=== PATIENT | male | born 1960 | race Caucasian/White ===

== ENCOUNTER 2016-08-23 07:13 | Day surgery (SDC) | payer OTHER ==
[2016-08-23] VITALS (20 sets, daily range): BP systolic 113–164; BP diastolic 54–95; PULSE 72–95; RESP 13–20; TEMP 97.3–97.6; O2SAT 88–98; Ht 167.6 cm; Wt 112.5 kg
[~2016-08-23] VITALS: Ht 167.6 cm; Wt 112.5 kg
[~2016-08-23 07:13] MED LIST: ASPI81TA2 PO; CEFAZOLIN 1 GRAM INJECTION IV ONE; CELE-85 PO; INSU300I; LIDOCAINE 1% (10mg/ml) 2ml SDV INJ ONE; LISI-1 PO; LR 1,000 ML IV SCH; MELO-31 PO; METF-206 PO; PIOG45TA5 PO; PRAV20TA4 PO; VENL-67 PO
[2016-08-23 08:00] LABS: POTASSIUM 4.3 MEQ/L (3.6-5)
[2016-08-23] MEDS ORDERED: FENTANYL 100mcg/2ml INJECTION IV PRN (08:00)
[2016-08-23] MEDS ORDERED: MIDAZOLAM 5mg/5ml INJECTION IV PRN (08:00)
[2016-08-23 08:01] LABS: ANION GAP 11 MEQ/L (5-15); BUN/CREATININE RATIO 34 RATIO (6-26); CALCIUM 9.4 MG/DL (8.4-10.2); CHLORIDE 106 MEQ/L (98-107); CO2 - CARBON DIOXIDE 28 MEQ/L (22-30); CREATININE 0.7 MG/DL (0.8-1.5); GLOMERULAR FILTRATION RATE 117; GLUCOSE 170 MG/DL (75-110); SODIUM 145 MEQ/L (134-144)
[2016-08-23] MEDS ORDERED: LIDOCAINE 1%/EPI 1:100,000 20ml MDV ONE (08:28)
--- NOTE | 2016-08-23 08:37 | ANESPREOP ---
Anesthesia Record Date and Time DATE: 08/23/16 TIME: 08:35 Pre-Op Diagnosis hypertrophic AC left posterior neck Proposed Surgical Procedure EXCISION OF LESION NPO since: 0500 Allergies: Coded Allergies: No Known Drug Allergies (Verified Allergy, Unknown, 08/23/16) Ht/Wt/BMI Height: 5 ' 6.00 " Weight: 112.500 kg BMI: 40.0 kg/m2 Vital Signs Date Time Temp Pulse Resp B/P Pulse Ox O2 Delivery O2 Flow Rate FiO2 08/23/16 07:31 97.5 80 14 164/84 93 Room Air Medications Inpatient Medications Current Medications Medications (Trade) Dose Ordered Sig/Yari Start Time Stop Time Status Last Admin Dose Admin Lactated Ringer's (Lactated Ringers) 1,000 ml @ 50 mls/hr Q20H 08/23/16 07:00 08/23/16 07:56 50 MLS/HR Fentanyl (Fentanyl) 25-50MCG IV PUSH PRN NOT... PRN PRN 08/23/16 08:00 Midazolam HCl (Versed) 05.-3 MG IV PUSH EVERY... PRN PRN 08/23/16 08:00 Aspirin (Aspirin) 81 Mg Tab.chew, 1 TAB PO DAILY, (Reported) Last Taken: on 08/16/16 0800 Celecoxib (Celecoxib) 200 Mg Capsule, 1 CAP PO BID, (Reported) Last Taken: on Unknown Date & Time Insulin Glargine,Hum.rec.anlog (Toelena Solostar) 300 Unit/1 Ml Insuln.pen, (Reported) Last Taken: on 08/21/16 220 Lisinopril/Hydrochlorothiazide (Lisinopril- Hctz 20-12.5 Tablet) 1 Tab Tablet, 1 TAB PO DAILY, (Reported) Last Taken: on 08/20/16 0800 Meloxicam (Mobic) 7.5 Mg Tablet, 7.5 MG PO DAILY , (Reported) Last Taken: on 08/20/162199 Metformin Hcl (Metformin Hcl) 1,000 Mg Tablet, 1 ,000 MG PO BID, (Reported) Last Taken: on 08/20/162199 Pioglitazone Hcl (Actos) 45 Mg Tablet, 1 TAB PO DAILY, (Reported) Last Taken: on 08/20/162199 Pravastatin Sodium (Pravastatin Sodium) 20 Mg Tablet, 1 TAB PO DAILY, (Reported) Last Taken: on 08/20/162199 Venlafaxine HCl (Venlafaxine HCl ER) 37.5 Mg Cap.er.24h, 1 CAP PO DAILY, (Reported) Last Taken: on 08/20/162199 Discontinued Medications Aspirin (Aspirin) 325 Mg Tablet, 325 MG PO DAILY, (Reported) Currently on Beta Mary Beth: No Medical/Surgical History Anesthesia PMH: Reports: *Diabetes, *Dyspnea, *Hypertension, Arthritis, Cancer (SKIN POSSIBLE), Obesity, Sleep Apnea, Denies: *Angina, *NH, Anesthesia Reactions (NO AIRWAY ISSUES), Asthma, Blood Transfusion Reac, CHF, COPD, CVA/ Stroke/TIA, Clotting Problems, Deep Vein Thrombosis, Glaucoma, Hepatitis, Hiatal Hernia, Malignant Hyperthermia, Pneumonia (HX OF 1997), Reflux, Renal Disease, Seizures, Thyroid Disease, Tuberculosis Smoking Status: Never smoker Has pt. smoked today?: No Use Chewing Tobacco?: No Second Hand Exposure: No Substance Use Type: does not use Alcohol Intake: none Past Surgical History Orthopedic Surgeries: No Abdominal Surgeries: No Genitourinary Surgeries: No Cardiac Surgeries: No Endocrine Surgeries: No Reproductive Surgeries: No Neurological Surgeries: No Ear Surgeries: No Nose Surgeries: No Throat Surgeries: No Other Surgeries: Yes - colonoscopy,HEMORRHOIDECTOMY Anesthesia Adverse Reactions: FOUND none Family Hx of Anesthesia Advers: none Hx of Motion Sickness: No Pertinent Findings Laboratory Tests 08/23/16 07:44 EKG Rhythm: Sinus Rhythm Physical Exam Respiratory: Lungs clear Cardiovascular: FOUND Regular rate, rhythm, FOUND No murmur Airway Assessment Mallampati Score: II TMD: 3 Fingerbreadths Neck Extension: Good Teeth: Chipped Teeth/Crowns Overall Assessment: May Be Diff Mask Vent. ASA: 3 Plan Anesthesia Plan: MAC Discussion Discussed risks/options/alternatives of anesthesia and questions answered. Patient consents. Nursing pain assessment noted. Present: Spouse Attestation Statement Prior to the delivery of any anesthetic medication, I examined the patient, developed the plan, obtained the patient's consent and discussed the risk and benefits of the procedure with the patient/guardian. MARILUZ JOHNSON CRNA Aug 23, 2016 08:37
--- NOTE | 2016-08-23 09:00 | NUR ---
MOHS PROCEDURE DR. MOLINA MARKED AND INTERVIEWED PT. ANESTHESIA INTERVIEWD PT. BOARD SAW RUNNER INTERVIEWED PT. 2MG OF VERSED AND 50MCG OF FENTANYL GIVEN SLOW IV PUSH BY PREOP RN PER DR MOLINA VERBAL ORDER. DR. MOLINA INTO PT ROOM AT 0838. PT PREPPED BY DR. MOLINA WITH 3% CHLOROXYLENOL. TIMEOUT COMPLETED AT [address] MOLINA. 1% LIDOCAINE WITH EPI 1:100,000 WAS INJECTED AT 0845. AMOUNT USED 8CC. BOVIE IN ROOM AND PLUGGED IN AND HIGHEST POWER OUTPUT USED WAS 20. SPECIMEN SENT FOR [facility] PATHOLOG[facility] AT 0850: 1. HYPERTROPHICACTINIC KERATOSIS LEFT POSTERIOR NEC LESION-NEEDLE AT 12 O'CLOCK.
[2016-08-23] MEDS ORDERED: MIDAZOLAM 2mg/2ml INJECTION ONE (10:09)
--- NOTE | 2016-08-23 10:35 | PDPROCED ---
Procedure Note Date 08/23/16 Procedure Name Excision of BCC left posterior neck at the mastoid: Lesion size 1.8 cm, excision 2.9 cm, final defect 3.7 cm Procedure Detail Preop dx: Hypertrophic Actinic keratosis left posterior neck at the mastoid Postop dx: BCC left posterior neck at the mastoid Anesthesia: MAC EBL: Less than 15 ml Case: Clean Complications: None ELIER MOLINA MD Aug 23, 2016 10:35
--- NOTE | 2016-08-23 10:48 | ANESPO ---
Post-Op Note Date 08/23/16 Time: 10:47 Status Pt Participated in Evaluation: Pt participated in person Vital Signs Date Time Temp Pulse Resp B/P Pulse Ox O2 Delivery O2 Flow Rate FiO2 08/23/16 09:45 72 15 133/65 97 Nasal Cannula 2.00 08/23/16 07:31 97.5 Cardiovascular Function: Regular pulse Mental Status: Alert/oriented Pain Level Intensity: 0 Hydration: Taking po fluids Complications during Recovery None apparent Follow-Up Instructions Instructions Per Surgeon MARILUZ JOHNSON CRNA Aug 23, 2016 10:48
[2016-08-23] MEDS ORDERED: ACET1TAB12 PO (11:06)
[2016-08-23] MEDS ORDERED: CEPH-583 PO (11:06)
[2016-08-23] MEDS ORDERED: ONDANSETRON 4mg/2ml INJECTION IV PRN (11:15)
[2016-08-23] MEDS ORDERED: HYDROCODONE/APAP 5 mg/325 mg TABLET PO PRN (11:15)
[2016-08-23] MEDS ORDERED: ATROPINE 1mg/10ml Syringe IV PRN (11:15)
--- NOTE | 2016-08-23 16:35 | OPNOTEF ---
DATE OF OPERATION 08/23/2016 PREOPERATIVE DIAGNOSIS Hypertrophic actinic keratosis left posterior neck at the mastoid. POSTOPERATIVE DIAGNOSIS Basal cell carcinoma left posterior neck at the mastoid. OPERATION Excision of basal cell carcinoma left posterior neck at the mastoid with frozen section guidance of margins and complex closure. Lesion size was 1.8 cm. Excision was 2.9 cm. Final defect was 3.7 cm. SURGEON Jaelyn Saab M.D. ANESTHESIA MAC INDICATIONS The patient is a 55-year-old man who presented for a lesion of his left posterior neck, having been referred by Griffin Staley PA-C. The lesion had been present for over a year; it was tender to touch and bled easily. Patient had been treated with cryotherapy more than once with recurrent growth. Biopsy was performed in September of 2015 revealing an ulcerated actinic keratosis. The patient has a history of multiple actinic keratoses treated with cryotherapy. He has had frequent sun exposure without protection and denies any personal or family history of skin cancer. On exam, he had a 1.8 cm ulcerated and erythematous lesion with raised borders of the left posterior neck at the mastoid. In detailed discussion with the patient preoperatively, the risks, benefits and alternatives of excision of the lesion with frozen section guidance of margins were reviewed including, but not limited to, bleeding, infection, poor or keloid scarring, residual and/or recurrent disease, possible partial or complete loss of the flap or graft. The patient understood and wished to proceed. Medical clearance was obtained from Griffin Staley PA-C. DESCRIPTION OF PROCEDURE The patient was marked preoperatively and then, after suitable IV sedation, the neck and face were prepped and draped in the usual sterile manner. The involved area was then infiltrated with 1% lidocaine with epinephrine. After a wait for hemostasis, the lesion was excised and handed off as a specimen with a tag at the 12 o'clock margin. Subsequent pathologic evaluation revealed basal cell carcinoma with clear margins. The patient was then brought to the operating room and again prepped and draped in the usual sterile manner. The area was infiltrated again with 1% lidocaine with epinephrine and then widely undermined. Dog ears were removed and meticulous hemostasis was obtained using the electrocautery. The wound was then closed in two layers using interrupted buried sutures of 5-0 Vicryl and then a running 5-0 nylon. Benzoin and Steri-Strips were applied, as well as a dry sterile dressing and Mefix tape. The patient was then brought to the recovery room in stable condition. Estimated blood loss was less than 10 mL. The case was clean. Specimens: Basal cell carcinoma of left posterior neck at the mastoid. MTDD
== END 2016-08-23 11:35 | disposition home or self-care (01) ==
LOC: SCU 07:13
PROVIDERS: ATTEND Surgery Plastic and Reconstructive Surgery
DX: C44.41 Basal cell carcinoma of skin of scalp and neck (principal)
CPT/HCPCS: 11623; 13132; 36415; 80048; J0690; J2250; J3010; J7120

== ENCOUNTER 2016-08-30 09:13 | Emergency (ER) | payer OTHER ==
[~2016-08-30] VITALS: Ht 167.6 cm; Wt 111.4 kg
[~2016-08-30 09:13] MED LIST changes: +ACET1TAB12 PO; -CEFAZOLIN 1 GRAM INJECTION IV ONE; +CEPH-583 PO; -INSU300I; +INSU300I SQ; -LIDOCAINE 1% (10mg/ml) 2ml SDV INJ ONE; -LR 1,000 ML IV SCH
--- OUTSIDE RECORDS SUMMARY | 2016-08-30 09:17 | XMS REPORT | Continuity of Care Document ---
Author Author [facility] Organization [facility] Address Unknown Phone Unavailable Support Name Relationship Address Phone PAYAL OSEGUERA MD Caregiver [address] [place] [address] Unavailable ELIER SAAB MD Caregiver [address] [place] [address] [address] [place] [address] Unavailable GOYO DEE Next Of Kin [address] [place] [address] Insurance Providers Guarantor Dora Dee Address [address] [place] [address] C Email DENIED 16 Payer [facility] Policy Number [id number] Subscriber's Name LeilaDora Relationship 18 Self Group Number [id number] Advance Directives Directive Response Recorded Date/Time Dr Kuhn Resuscitation Status Full Code 08/22/16 2:11pm Resuscitation Documents on File No 08/23/16 7:38am DPOA for Healthcare Only No 08/23/16 7:38am Living Will No 08/23/16 7:38am Problems No problem information available. Medications Current Home Medications Medication Dose Units Route Directions Days Qty Instructions Start Date Acetaminophen With Codeine (Tylenol With Codeine #3 Tablet) 300-30 Tablet 1-2 Tab Oral Every 4-6 Hours Prn as needed for Pain 20 Tablet 08/23/16 Aspirin 81 Mg Tab.chew 1 Tab Oral Daily 08/22/16 Celecoxib 200 Mg Capsule 1 Cap Oral Twice A Day 60 08/22/16 Cephalexin (Keflex) 500 Mg Capsule 500 Mg Oral One Time 1 Capsule 08/23/16 Insulin Glargine,Hum.rec.anlog (Toelena Gant) 300 Unit/1 Ml Insuln.pen 08/22/16 Lisinopril/Hydrochlorothiazide (Lisinopril-Hctz 20-12.5 Tablet) 1 Tab Tablet 1 Tab Oral Daily 05/01/12 Meloxicam (Mobic) 7.5 Mg Tablet 7.5 Mg Oral Daily 12/19/12 Metformin Hcl 1,000 Mg Tablet 1,000 Mg Oral Twice A Day 05/01/12 Pioglitazone Hcl (Actos) 45 Mg Tablet 1 Tab Oral Daily 05/01/12 Pravastatin Sodium 20 Mg Tablet 1 Tab Oral Daily 08/22/16 Venlafaxine Hcl (Venlafaxine Hcl Er) 37.5 Mg Cap.er.24h 1 Cap Oral Daily 30 08/22/16 Past Home Medications Medication Directions Ordered Status Aspirin 325 Mg Tablet, 325 Mg Oral Daily 11/06/08 Discontinued Social History Social History Problem Response Recorded Date/Time Onset Date Status Reason for Hospitalization removal of lesion behind left ear 08/23/2016 11: 09am Not Applicable Not Applicable Chewing Tobacco Status No 05/01/2012 2:15pm Not Applicable Not Applicable Hx Substance Use No 08/22/2016 2:02pm Not Applicable Not Applicable Hx Alcohol Use No 08/22/2016 2:02pm Not Applicable Not Applicable Has the pt used tobacco in the last 12 months No 08/22/2016 2:02pm Not Applicable Not Applicable Query Response Start Date Stop Date Smoking Status Former smoker Hospital Discharge Instructions Instructions: Care Instructions: I was in the hospital because (patient own words): removal of lesion behind left ear Discharge Diet: Regular Discharge Activity: Refer to pre-operative packet Follow Up Appointments: Follow up with Dr. Saab on September 10 @ 5:10pm Pending Lab / Results: No Pending Lab Expected Signs/Symptoms: Refer to pre-operative packet Notify Physician If: Refer to pre-operative packet During Business Hours:: Call the office with questions or concerns [phone] After Business Hours:: Call [phone] and have the cambering machine operator page the physician Pain Management/Treatment: Refer to pre-operative packet Wound/Incision Care: Keep dressing dry; you may remove gauze dressing on Sunday, August 25. Leave the steri strips in place and you may get the incision wet. Pat dry. No dressing needed. Condition at time of discharge: Good Plan of Care Discharge Date 08/23/16 11:35am Instructions/Education Provided [facility] Prescriptions See Medication Section Functional Status Query Response Date Recorded Ability to complete ADL's impeded by No change August 23, 2016 7:38am Allergies, Adverse Reactions, Alerts Allergen Type Severity Reaction Status Last Updated No Known Drug Allergies Allergy Unknown Active 08/23/16 Immunizations Query Response on File Recorded Date/Time Hx Influenza Vaccination Y FEB 2016 08/22/16 2:02pm Hx Pneumococcal Vaccination No 08/22/16 2:02pm Hx Influenza Vaccination Y FEB 2016 08/22/16 2:02pm Vital Signs Acute Vital Signs Vital Response Date/Time Temperature (Fahrenheit) 97.3 deg F (96.8 - 99.1) 08/23/2016 11:28am Temperature (Calculated Celsius) 36.65282 degrees C (36.0 - 37.3) 08/23/2016 11:28am Temperature Source Oral 08/23/2016 11:28am Pulse Rate (adult) 78 bpm (60 - 100) 08/23/2016 11:28am Respiratory Rate 18 breaths/min (10 - 20) 08/23/2016 11:28am O2 Sat by Pulse Oximetry 95 % (90 - 100) 08/23/2016 11:28am Oxygen Delivery Method Nasal Cannula 08/23/2016 9:45am Oxygen Delivery Method Room Air 08/23/2016 11:28am Oxygen Flow Rate 2.00 L/min 08/23/2016 9:45am Blood Pressure 149/72 mm Hg 08/23/2016 11:28am Blood Pressure Source Automatic Cuff 08/23/2016 11:28am Height (Feet) 5 feet 08/23/2016 7:30am Height (Inches) 6.00 inches 08/23/2016 7:30am Weight (Kilograms) 112.500 kg 08/23/2016 7:30am Body Mass Index (BMI) 40.0 08/23/2016 7:30am Results Laboratory Results Test Name Result Units Flags Reference Collection Date/Time Result Date/ Time Comments Icterus Index < 2 0-7 08/23/2016 7:44am 08/23/2016 8:00am Chemistry Specimen Hemolysis < 15 0-25 08/23/2016 7:44am 08/23/2016 8 :00am 0-25: Specimen Exhibited No Hemolysis. Turbidity < 20 0-20 08/23/2016 7:44am 08/23/2016 8:00am Sodium Level 145 MEQ/L H 134-144 08/23/2016 7:44am 08/23/2016 8:01am Potassium Level 4.3 MEQ/L 3.6-5 08/23/2016 7:44am 08/23/2016 8:00am Chloride Level 106 MEQ/L 98-107 08/23/2016 7:44am 08/23/2016 8:01am Carbon Dioxide Level 28 MEQ/L 22-30 08/23/2016 7:44am 08/23/2016 8: 01am Anion Gap 11 MEQ/L 5-15 08/23/2016 7:44am 08/23/2016 8:01am Blood Urea Nitrogen 24.0 MG/DL H 9-20 08/23/2016 7:44am 08/23/2016 8: 01am Creatinine 0.7 MG/DL L 0.8-1.5 08/23/2016 7:44am 08/23/2016 8:01am BUN/Creatinine Ratio 34 RATIO H 6-26 08/23/2016 7:44am 08/23/2016 8: 01am Glomerular Filtration Rate Calc 117 08/23/2016 7:44am 08/23/2016 8: 01am Glucose Level 170 MG/DL H 75-110 08/23/2016 7:44am 08/23/2016 8:01am Calculated Osmolality 287 MOSM/KG H 261-280 08/23/2016 7:44am 2016 8:01am Calcium Level 9.4 MG/DL 8.4-10.2 08/23/2016 7:44am 08/23/2016 8:01am Procedures Procedure Status Date Provider(s) Excision of lesion Completed 08/23/16 ELIER SAAB MD Encounters Encounter Location Arrival/Admit Date Discharge/Depart Date Attending Provider Departed [facility] 08/23/16 7:13am 08/23/16 11 :35am ELIER SAAB MD
[2016-08-30 09:21] VITALS: Ht 167.6 cm; Wt 111.4 kg
[2016-08-30] MEDS ORDERED: ACET1TAB25 PO (09:41)
[2016-08-30] MEDS ORDERED: FISH1CAP59 PO (09:46)
[2016-08-30] MEDS ORDERED: CYAN250010 PO (09:46)
[2016-08-30] MEDS ORDERED: ASCO10007 PO (09:46)
[2016-08-30] MEDS ORDERED: VITA100C5 PO (09:46)
[2016-08-30] MEDS ORDERED: MULT1TAB69 PO (09:46)
[2016-08-30] MEDS ORDERED: OLOP2.5D BOTH EYES (09:46)
[2016-08-30] MEDS ORDERED: NORMAL SALINE 1,000 ML IV ONE (10:13)
[2016-08-30] MEDS ORDERED: MORPHINE SULFATE 4 MG SYRINGE IV ONE ×2 (10:15→10:45)
[2016-08-30] MEDS ORDERED: ONDANSETRON 4mg/2ml INJECTION IV ONE (10:15)
[2016-08-30 10:24] LABS: HCT - HEMATOCRIT 43.5 % (41-53); HGB - HEMOGLOBIN 14.2 GM/DL (13.5-17.5); MEAN CORPUSCULAR HGB 28.5 UUG (26-34); MEAN CORPUSCULAR HGB CONC(MCHC 32.6 GM/DL (31-37); MEAN CORPUSCULAR VOLUME 87.2 UM3 (80-100); MEAN PLATELET VOLUME 11.1 UM3 (9.4-12.4); RED BLOOD COUNT 4.99 M/MM3 (4.50-5.90); WBC - WHITE BLOOD COUNT 12.6 T/MM3 (4.5-11.0)
[2016-08-30 10:33] LABS: ALBUMIN 4.4 G/DL (3.5-5.0); ALBUMIN/GLOBULIN RATIO 1.5 RATIO (1.1-2.2); ALKALINE PHOSPHATASE 91 U/L (38-126); ALT (SGPT) 45 U/L (21-72); ANION GAP 16 MEQ/L (5-15); AST (SGOT) 26 U/L (17-59); BUN/CREATININE RATIO 31 RATIO (6-26); CALCIUM 9.4 MG/DL (8.4-10.2); CHLORIDE 101 MEQ/L (98-107); CO2 - CARBON DIOXIDE 26 MEQ/L (22-30); GLOMERULAR FILTRATION RATE 77; GLUCOSE 281 MG/DL (75-110); LIPASE 78 U/L (23-300); POTASSIUM 4.5 MEQ/L (3.6-5); SODIUM 143 MEQ/L (134-144); TOTAL PROTEIN 7.3 G/DL (6.3-8.2)
--- NOTE | 2016-08-30 10:33 | NUR ---
TO [facility] PER CART
[2016-08-30 10:45] LABS: BAND NEUTROPHILS # 0.8 T/MM3; LYMPHOCYTES # (MANUAL) 0.6 T/MM3 (1-4.8); MONOCYTES # (MANUAL) 1.3 T/MM3 (0-0.8); TOTAL CELLS COUNTED 100 %
[2016-08-30 10:51] LABS: BLOOD, URINE 3+ (NEGATIVE); COLOR,URINE YELLOW (YELLOW); LEUKOCYTE ESTERASE ,URINE NEGATIVE (NEGATIVE); NITRITE,URINE NEGATIVE (NEGATIVE); UROBILINOGEN,URINE 0.2 EU/DL (NORMAL)
--- NOTE | 2016-08-30 10:51 | NUR ---
RETURNED FROM [facility]
--- NOTE | 2016-08-30 10:58 | DI ---
Indication: ITS.REASON: abdominal pain PROCEDURE: KUB W/UPRIGHT: Encounter: Initial Comparison: None Findings: No free air on the upright view. Air-fluid level seen within the stomach. The bowel gas pattern is nonobstructive. There are some slightly prominent loops of small bowel seen in the left mid abdomen measuring up to 3.8 cm in diameter. Colonic gas and stool is seen throughout to the level of the rectum. Bony structures are unremarkable. No obvious renal or ureteral stones. Kidneys are largely obscured by overlapping bowel gas and stool. Impression: Mildly prominent small bowel in the left mid abdomen with an overall nonobstructive pattern could represent a focal ileus. .
[2016-08-30 11:06] LABS: WBC,URINE NONE SEEN /HPF (0-5)
[2016-08-30 11:07] LABS: BACTERIA,URINE NEGATIVE (NEGATIVE); RBC,URINE 30-50 /HPF (0-3)
[2016-08-30 11:15] VITALS: TEMP 97.9
--- NOTE | 2016-08-30 11:15 | NUR ---
ASSESS PT IS SLEEPY. RELAXED. NO PAIN. VS STABLE
--- NOTE | 2016-08-30 12:26 | NUR ---
ROOM CHANGE TO [facility] BED
--- NOTE | 2016-08-30 12:55 | DI ---
Indication: ITS.REASON: hematuria and right flank pain PROCEDURE: CT RENAL W/O CONTRAST: Encounter: Initial Comparison: None Technique: Axial CT images were performed through the abdomen and pelvis without intravenous contrast. Coronal and sagittal two-dimensional reformats. Automated Exposure Control and Iterative Reconstruction dose reducing techniques were utilized. Findings: Tiny nonspecific pulmonary nodules in the lower lobes measure less than 4 mm in size and do not require specific imaging follow-up. The liver is fatty infiltrated without contour deforming mass. The gallbladder appears normal. Focal areas of fatty sparing within the liver. The spleen is within normal limits. Stomach is distended with fluid. The pancreas and adrenal glands are normal. Left kidney is normal. Right kidney shows perinephric inflammatory change with mild hydronephrosis and mild right hydroureter. There is a stone within the bladder measuring 4 mm in size. This could be within the distal intramural portion of the right ureter or could be a recently passed stone. The bladder is otherwise normal. No left ureteral stone. No abdominal or pelvic lymphadenopathy. No free fluid. The appendix is normal. Bone windows show degenerative changes in the spine. Impression: 1. 4 mm stone in the bladder could be a recently passed stone or lie within the distal intramural portion of the right ureter at the ureteral orifice. There is associated mild right hydronephrosis. 2. Hepatic steatosis. .
[2016-08-30 13:00] VITALS: BP 139/71
--- NOTE | 2016-08-30 13:10 | NUR ---
REPORT TO MILY QURESHI
--- NOTE | 2016-08-30 13:26 | ERPDOC ---
Departure Disposition Decision Date: Aug 30, 2016 Disposition Decision Time: 13:25 Disposition: 01 DISCHARGED HOME, SELF-CARE Impression Impression Impression: Primary Impression: Kidney stone Severity: Moderate Condition: Improved Seen By: Physician only Referrals: PAYAL OSEGUERA MD (Family) Patient Instructions: Kidney Stones (ED) Problems/Meds/Labs Reviewed?: Yes Medications reviewed and manag: Yes Additional Instructions: Flomax, 1 tablet daily. Increase fluid as tolerated. Follow up care ordered?: Yes Mental Status: Alert, Oriented Scripts Tamsulosin HCl (Flomax) 0.4 Mg Capsule 0.4 MG PO HS for 15 Days, #15 CAP Take 1 capsule, by mouth, one time a day at BEDTIME. Prov: GERDA WISE MD 08/30/16 Oxycodone HCl/Acetaminophen (Percocet 5-325 mg Tablet) 5-325 Tablet 1 TAB PO QID for PAIN, #10 TAB Take 1 tablet, by mouth, 4 times a day. Prov: GERDA WISE MD 08/30/16 HPI - Abdominal Pain General Chief Complaint: Abdominal Pain Stated Complaint: SHARP R SIDE PAIN Time Seen by Provider: 09:22 HPI - Abdominal Pain Initial Comments 55-year-old gentleman presents with abdominal pain. He feels like the pain is moved more toward the center. No fever no chills. No dysuria Allergies: Coded Allergies: No Known Drug Allergies (Verified Allergy, Unknown, 08/30/16) Past History Vaccines Hx Influenza Vaccination: Yes (FEB 2016) Hx Pneumococcal Vaccination: No Social History Does patient use chewing tobac: No Second Hand Exposure: No Substance Use Type: does not use Physical Exam General Vitals and Pain First Documented Vital Signs Date Time Temp Pulse Resp B/P Pulse Ox O2 Delivery O2 Flow Rate FiO2 08/30/16 09:21 97.5 109 16 177/96 93 Room Air Weight: Kilograms: 111.400 Height (feet): 5 Height (inches): 6.00 Triage Pain Scale: Progress Results/Orders Orders Procedure Category Date Status Time Iv Lock (Ed Only) EDM 08/30/16 Transmitted 10:13 Cbc W/Auto LAB 08/30/16 Complete Diff-Reflex Manual 10:13 Cmp - Comprehensive LAB 08/30/16 Complete Metabolic 10:13 Lipase LAB 08/30/16 Complete 10:13 Kub W/Upright RAD 08/30/16 Resulted 10:13 Normal Saline (Normal PHA 08/30/16 Complete Saline Iv) 10:13 Morphine Sulfate PHA 08/30/16 Complete (Morphine) 10:15 Ondansetron Inj PHA 08/30/16 Complete (Zofran) 10:15 Ekg Prn MARTHA 08/30/16 In Process 10:13 Morphine Sulfate PHA 08/30/16 Complete (Morphine) 10:45 UA, LAB 08/30/16 Complete Dip&Micro(Complete) & 10:41 Ct Renal W/O Contrast CT 08/30/16 Resulted 11:28 Lab Results Laboratory Tests Test 08/30/16 10:15 08/30/16 10:41 White Blood Count 12.6T/MM3 Red Blood Count 4.99M/MM3 Hemoglobin 14.2GM/DL Hematocrit 43.5% Mean Corpuscular Volume 87.2UM3 Mean Corpuscular Hemoglobin 28.5UUG Mean Corpuscular Hemoglobin Concent 32.6GM/DL RDW Standard Deviation 43.2FL Platelet Count 201T/MM3 Mean Platelet Volume 11.1UM3 Immature Granulocyte % (Auto) % Neutrophils (%) (Auto) % Lymphocytes (%) (Auto) % Monocytes (%) (Auto) % Eosinophils (%) (Auto) % Basophils (%) (Auto) % Absolute Immature Granulocyte (auto T/MM3 Absolute Neutrophils (auto) T/MM3 Absolute Lymphocytes (auto) T/MM3 Absolute Monocytes (auto) T/MM3 Absolute Eosinophils (auto) T/MM3 Absolute Basophils (auto) T/MM3 Neutrophils % (Manual) 79.0% Band Neutrophils % 6.0% Lymphocytes % (Manual) 5.0% Monocytes % (Manual) 10.0% Absolute Neutrophils (Manual) 10.0T/MM3 Band Neutrophils # 0.8T/MM3 Lymphocytes # (Manual) 0.6T/MM3 Monocytes # (Manual) 1.3T/MM3 Red Cell Morphology Comment Normal Turbidity < 20 Sodium Level 143MEQ/L Potassium Level 4.5MEQ/L Chloride Level 101MEQ/L Carbon Dioxide Level 26MEQ/L Anion Gap 16MEQ/L Blood Urea Nitrogen 31.0MG/DL Creatinine 1.0MG/DL Glomerular Filtration Rate Calc 77 BUN/Creatinine Ratio 31RATIO Glucose Level 281MG/DL Calculated Osmolality 292MOSM/KG Calcium Level 9.4MG/DL Total Bilirubin 0.50MG/DL Icterus Index < 2 Aspartate Amino Transf (AST/SGOT) 26U/L Alanine Aminotransferase (ALT/SGPT) 45U/L Alkaline Phosphatase 91U/L Total Protein 7.3G/DL Albumin 4.4G/DL Globulin 2.9G/DL Albumin/Globulin Ratio 1.5RATIO Lipase 78U/L Chemistry Specimen Hemolysis < 15 Urine Collection Type Voided-not cc-midstr Urine Color Yellow Urine Turbidity Clear Urine pH 6.0 Urine Specific Antoine 1.020 Urine Protein Negative Urine Glucose (UA) 3+ Urine Ketones Negative Urine Blood 3+ Urine Nitrite Negative Urine Bilirubin Negative Urine Urobilinogen 0.2EU/DL Urine Leukocyte Esterase Negative Urine RBC 30-50/HPF Urine WBC None seen/HPF Urine Bacteria Negative Urine Culture Indicated Cult not indicated Medications Current ED Medications Sodium Chloride (Normal Saline IV) 1,000 ml @ 1,000 mls/hr Q1H ONCE IV Last administered on 08/30/16 10:39; Start 08/30/16 at 10:13; Stop 08/30/16 at 11:12 ; Status DC Morphine Sulfate (Morphine) 2 mg O ONCE IV ; Start 08/30/16 at 10:15; Stop at 10:43; Status DC Ondansetron HCl (Zofran) 4 mg O ONCE IV Last administered on 08/30/16 10:39; Start 08/30/16 at 10:15; Stop 08/30/16 at 10:19; Status DC Morphine Sulfate (Morphine) 4 mg O ONCE IV Last administered on 08/30/16 10: 41; Start 08/30/16 at 10:45; Stop 08/30/16 at 10:46; Status DC Progress Progress CT shows 4 mm stone in bladder, and appearance of tissue implies it is only recently dropped and is there is still some hydronephrosis on the right side. Patient will be treated with pain medication as needed, recommended he follow up with his primary care physician. He is received 2 L normal saline while in the ED as well as morphine 2 mg and Zofran 4 mg IV. Discharge on Flomax as well. Return if he develops fever or worsening pain. GERDA WISE MD Aug 30, 2016 13:26
[2016-08-30] MEDS ORDERED: TAMS-1 PO (13:27)
[2016-08-30] MEDS ORDERED: OXYC1TAB8 PO (13:27)
[2016-08-30 13:35] VITALS: PULSE 98; RESP 16; O2SAT 97
== END 2016-08-30 13:41 | disposition home or self-care (01) ==
LOC: ED 09:13
DX: N21.0 Calculus in bladder (principal); N13.30 Unspecified hydronephrosis
CPT/HCPCS: 74020; 74176; 80053; 81001; 83690; 85025; 96361; 96374; 96375; 99284; J2405; J7030

== ENCOUNTER → 2016-10-02 | Outpatient (CLI) | payer OTHER ==
[~2016-10-02] MED LIST changes: -ACET1TAB12 PO; +ACET1TAB25 PO; +ASCO10007 PO; -CEPH-583 PO; +CYAN250010 PO; +FISH1CAP59 PO; -MELO-31 PO; +MULT1TAB69 PO; +OLOP2.5D BOTH EYES; +OXYC1TAB8 PO; +TAMS-1 PO; +VITA100C5 PO
--- NOTE | 2016-10-03 08:42 | DI ---
Indication: ITS.REASON: M25.522 LT ELBOW PAIN; M77.12 EPICONDYLITIS PROCEDURE: MRI ELBOW LEFT W/O CONTRAST: Encounter: Initial Comparison: None Technique: Multiplanar multisequence MR imaging of the left elbow was performed without contrast. Findings: The biceps tendon is ruptured and retracted from its radial tuberosity attachment by approximately 4 cm proximally. The brachialis tendon is intact. Triceps tendon is intact. Muscular signal intensity is otherwise normal apart from edema within the biceps musculature. No fluid collections identified. The radial and ulnar collateral ligaments are intact. The common flexor and extensor tendon origins are intact. Impression: Complete rupture of the distal biceps tendon with retraction by 4 cm. .
== END ==
LOC: IMA 16:29
PROVIDERS: ATTEND Physician Assistant
DX: S46.212A Strain of muscle, fascia and tendon of other parts of biceps, left arm, initial encounter (principal); M25.522 Pain in left elbow; M77.12 Lateral epicondylitis, left elbow; X50.0XXA Overexertion from strenuous movement or load, initial encounter; Y93.89 Activity, other specified; Y92.019 Unspecified place in single-family (private) house as the place of occurrence of the external cause; Y99.8 Other external cause status

== ENCOUNTER → 2016-10-10 | Outpatient (CLI) | payer OTHER ==
[~2016-10-10] MED LIST changes: +HYDR-347 PO; +ONDA4TAB4 PO
[2016-10-10 10:19] LABS: BASOPHILS # (AUTO) 0.1 T/MM3 (0-0.2); BASOPHILS % (AUTO) 1.1 % (0-2); EOSINOPHILS # (AUTO) 0.2 T/MM3 (0-0.5); EOSINOPHILS % (AUTO) 3.7 % (0-4); HCT - HEMATOCRIT 39.9 % (41-53); HGB - HEMOGLOBIN 12.7 GM/DL (13.5-17.5); IMMATURE GRANULOCYTE # (AUTO) 0.02 T/MM3 (0.00-0.03); IMMATURE GRANULOCYTE % (AUTO) 0.4 % (0.0-0.5); LYMPHOCYTES # (AUTO) 1.4 T/MM3 (1-4.8); LYMPHOCYTES % (AUTO) 29.9 % (23-45); MEAN CORPUSCULAR HGB 28.4 UUG (26-34); MEAN CORPUSCULAR HGB CONC(MCHC 31.8 GM/DL (31-37); MEAN CORPUSCULAR VOLUME 89.3 UM3 (80-100); MEAN PLATELET VOLUME 10.7 UM3 (9.4-12.4); MONOCYTES # (AUTO) 0.5 T/MM3 (0-0.8); MONOCYTES % (AUTO) 9.9 % (0-9.0); NEUTROPHILS #(AUTO)-ABSOLUTE 2.5 T/MM3 (1.8-7.7); RED BLOOD COUNT 4.47 M/MM3 (4.50-5.90); WBC - WHITE BLOOD COUNT 4.6 T/MM3 (4.5-11.0)
[2016-10-10 10:27] LABS: ANION GAP 12 MEQ/L (5-15); BUN/CREATININE RATIO 33 RATIO (6-26); CALCIUM 8.6 MG/DL (8.4-10.2); CHLORIDE 105 MEQ/L (98-107); CO2 - CARBON DIOXIDE 27 MEQ/L (22-30); CREATININE 0.7 MG/DL (0.8-1.5); GLOMERULAR FILTRATION RATE 117; GLUCOSE 150 MG/DL (75-110); POTASSIUM 4.5 MEQ/L (3.6-5); SODIUM 144 MEQ/L (134-144)
--- NOTE | 2016-10-10 17:38 | PDPROCED ---
Immediate Operative Note DATE: 10/10/16 TIME: 17:37 Preop Diagnosis: Left distal biceps tendon rupture Postop Diagnosis: Left distal biceps tendon rupture Surgical Procedures: Other (Left distal biceps tendon repair.) Surgeon: Anca Shot Examiner: TRUDI Khan Anesthesia: General Complications: none Estimated Blood Loss see anesthesia CARLY BOLANOS October 10, 2016 17:38
== END ==
LOC: LAB 09:46
PROVIDERS: ATTEND Orthopaedic Surgery
DX: Z01.818 Encounter for other preprocedural examination (principal)
CPT/HCPCS: 80048; 85025; 93005